=== PATIENT | male | born 1985 | race Caucasian/White ===

== ENCOUNTER 2019-12-04 01:30 | Emergency (ER) | payer BC, SELFPAY ==
[2019-12-04 01:30] VITALS: BP 128/80; PULSE 131; RESP 16; TEMP 36.9; O2SAT 97
[2019-12-04 02:09] LABS: Basophils Absolute Auto 0.08 K/mm3 (0.00-0.10); Basophils Percent Auto 0.7 % (0.0-1.0); Eosinophils Absolute Auto 0.05 K/mm3 (0.02-0.50); Eosinophils Percent Auto 0.4 % (1.0-6.0); Hematocrit 47.6 % (40.0-54.0); Hemoglobin 17.2 g/dL (14.0-18.0); Immature Granulocyte Absolute 0.17 K/mm3 (0.00-0.00); Immature Granulocyte Percent A 1.4 % (0.0-0.0); Lymphocytes Absolute Auto 3.44 K/mm3 (1.10-4.50); Lymphocytes Percent Auto 28.4 % (18.0-42.0); Mean Corpuscular HGB Conc 36.1 g/dL (32.0-36.0); Mean Corpuscular Volume 94.1 fL (78.0-102.0); Mean Platelet Volume 11.4 fl (8.7-11.0); Monocytes Percent Auto 6.6 % (2.0-11.0); Neutrophils Absolute Auto 7.6 K/mm3 (1.7-7.2); Neutrophils Percent Auto 62.5 % (50.0-70.0); Platelet Count Result 204 K/mm3 (150-420); Red Blood Count 5.06 M/mm3 (4.70-6.10); Red Cell Distribution Width 14.6 % (11.6-14.4); White Blood Count 12.1 K/mm3 (4.8-10.8)
[2019-12-04 02:16] LABS: Appearance Urine Clear (Clear); Bilirubin Urine Negative (Negative); Color Urine Amber (Yellow); Glucose Urine UA Trace (Negative); Ketones Urine Trace (Negative); Leukocyte Esterase Ur Negative LEU/UL (Negative); Nitrate Urine Negative (Negative); Protein Urine 2+ (Negative); Specific Grav Ur 1.025 (1.010-1.020); Urobilinogen Urine 0.2 mg/dL (0.2-1.0)
[2019-12-04 02:22] LABS: Amphetamine Screen Urine Positive (Negative); Barbiturate Screen Urine Negative (Negative); Benzodiazepines Screen Urine Negative (Negative); Cannabinoid Screen Urine Negative (Negative); Cocaine Screen Urine Negative (Negative); Methadone Screen Urine Negative (Negative); Opiate Screen Urine Negative (Negative); Phencyclidine Screen Urine Negative (Negative)
[2019-12-04 02:26] LABS: Add Urine Microscopic? YES; Blood Urine Trace-Intact (Negative); RBC Urine 0-2 /hpf (0-2); WBC Urine None seen /hpf (0-3)
[2019-12-04 02:27] LABS: Bacteria Urine None seen /hpf; Mucus Urine Rare /lpf; Squamous Epithelial Cell Urine Rare /hpf (Few)
[2019-12-04 02:39] LABS: Acetaminophen 0 ug/mL (10-30); Alanine Aminotransferase 54 U/L (16-63); Albumin Level 4.1 g/dL (3.4-5.0); Alkaline Phosphatase 110 U/L (46-116); Anion Gap 21.4 mmol/L (7-16); Aspartate Amino Transferase 18 U/L (15-37); Bilirubin,Total 0.5 mg/dL (0.00-1.00); Blood Urea Nitrogen 11 mg/dL (7-18); Calcium 8.4 mg/dL (8.5-10.1); Carbon Dioxide 21 mmol/L (21-32); Chloride 102 mmol/L (98-108); Estimated CRCL calculation 71 ml/min; Estimated Glomerular Filt Rate > 60; Ethanol 128 mg/dL (0-6); Glucose 166 mg/dL (70-99); Osmolality Calculated 295 mOsm/kg (285-295); Potassium 3.4 mmol/L (3.5-5.1); Salicylate 3.9 mg/dL (2.8-20.0); Sodium 141 mmol/L (136-145); Thyroid Stimulating Hormone 0.93 uIU/mL (0.36-3.74); Total Protein 7.9 g/dL (6.4-8.2)
--- NOTE | 2019-12-04 02:43 | PC.NURSE ---
ISP KAY SHEA, KAY RAMSAY HERE. Pt currently sleeping.
--- NOTE | 2019-12-04 02:48 | ED.PSYCH ---
HPI - Psych General Chief Complaint: Psychiatric Symptoms Stated Complaint: Psych Evaluation Time Seen by Provider: 12/04/19 01:36 Source: patient and EMS Mode of arrival: ambulatory Limitations: no limitations History of Present Illness HPI Narrative: Patient traveling today was texting family that he was going to harm self or harm others. Family called the state please and they found him driving. Pulled him over. Found him with a knife. Stated he was suicidal and/or homicidal. He had superficial incision on his left forearm with minor bleeding. Denies any other problems today. Has a history of mental illness in the past. Currently on medication. MD complaint: suicidal ideation and feels depressed Onset (ago): day(s) (1) Duration: constant History of same: Yes Relieving factors: none Exacerbating factors: alcohol Context: recent alcohol abuse Associated psychiatric symptoms: depression Associated symptoms: denies other symptoms If self harm: admits thoughts of self harm and self-inflicted trauma ( Superficial left arm) Details of plan: Use a Knife if it was sharper. Related Data Home Medications Medication Instructions Recorded Confirmed dextroamphetamine-amphetamine 10 mg PO DAILY 12/04/19 12/04/19 [Adderall] Review of Systems Review of Systems: All systems reviewed & are unremarkable except as noted in HPI and below PMFSH Past Medical History Medical History (Updated 12/04/19 @ 03:05 by Bebeto Benitez MD) ADHD Anxiety PTSD (post-traumatic stress disorder) Surgical History Surgical History (Updated 12/04/19 @ 03:05 by Bebeto Benitez MD) H/O removal of cyst Social History Social History (Updated 12/04/19 @ 03:05 by Bebeto Benitez MD) Smoking status: Current every day smoker Tobacco type: cigarettes Alcohol intake: current Substance use: never Exam Const: General: healthy appearing, no acute distress and alert Nutritional Appearance: well nourished Orientation/consciousness: patient oriented x3 HENMT: Head: normal to inspection Ears: external ears normal General nose exam: Normal external nose present Face and sinus: normal facial exam Mouth: Yes lip normal Eyes: Conjunctivae: conjunctivae normal Pupils: Equal, round and reactive pupils present EOM: EOMs intact bilaterally Neck: Neck: normal visual inspection Resp: Effort & Inspection: normal respiratory effort Auscultation: clear to auscultation bilaterally Cardio: Rate: regular rate and tachycardic Heart sounds: no murmurs GI: GI Palp: Yes Soft to palpation and No Tenderness to palpation present (GI) Auscultation: normal bowel sounds Back/Spine/Pelvis: Cervical Spine: cervical ROM normal Thoracic/Lumbar Spine: thoraco-lumbar ROM normal Skin: General skin exam: normal color Rashes: no rashes Wounds: wounds noted incision left volar forearm size (6) and bed ( superficial) Neuro: General: patient oriented x3, moves all extremities and no focal motor deficits Speech: normal speech Extrem: General: normal to inspection and no pedal edema Psych: Appearance: well kempt Affect: Sad affect present Attitude: cooperative Thought content: Yes Depressive thoughts present Course Course Emergency Course: Patient spoke with counselor. They agreed to a safety plan. Patient states that said things and texted things under the influence of alcohol. He has an appointment with psychiatrist this Wednesday in the will follow-up then. Vital Signs Vital signs: Vital Signs Temperature 36.9 C 12/04/19 01:30 Pulse Rate 131 H 12/04/19 01:30 Respiratory Rate 16 12/04/19 01:30 Blood Pressure 128/80 12/04/19 01:30 Pulse Oximetry 97 12/04/19 01:30 Temperature 36.9 C 12/04/19 01:30 Pulse Rate 131 H 12/04/19 01:30 Respiratory Rate 16 12/04/19 01:30 Blood Pressure 128/80 12/04/19 01:30 Pulse Oximetry 97 12/04/19 01:30 MDM - Psych Lab Data Result diagrams: 12/04/19 02:02
--- NOTE | 2019-12-04 03:30 | PC.NURSE ---
0300 pt sleeping. 0315 pt sleeping. 0330 pt sleeping. to have repeat etoh level at 0500.
--- NOTE | 2019-12-04 04:30 | PC.NURSE ---
0345 pt sleeping, repositions self in bed. side rail x1 elevated. blanket offered, pt declined. 0400 pt sleeping 0415 pt sleeping. 0430 pt sleeping.
--- NOTE | 2019-12-04 05:08 | PC.NURSE ---
pt awakened for repeat etoh level. pt easily aroused. cooperative with lab draw .
[2019-12-04 05:20] LABS: Ethanol 62 mg/dL (0-6)
--- NOTE | 2019-12-04 05:51 | PC.NURSE ---
call to [facility].
[2019-12-04 07:15] VITALS: BP 128/79; PULSE 84; RESP 20; TEMP 36.9; O2SAT 99
--- NOTE | 2019-12-04 07:43 | PC.NURSE ---
all personal belongings returned to patient. [facility] service called for release of personal vehicle. [facility] staff to garbage pick up man patient and transport to vehicle. pt outside awaiting arrival.
== END 2019-12-04 07:30 | disposition home or self-care (01) ==
PROVIDERS: Emergency Provider Emergency Medicine
DX: F10.10 Alcohol abuse, uncomplicated (principal); F33.1 Major depressive disorder, recurrent, moderate
CPT/HCPCS: 36415; 80053; 80307; 81001; 84443; 85025; 99282; 99284